=== PATIENT | male | born 1945 | race Caucasian/White ===

== ENCOUNTER 2017-02-22 05:59 | Emergency (ER) | payer BC, MEDICARE ==
[2017-02-22 06:14] VITALS: O2SAT 96
[2017-02-22] MEDS ORDERED: Albuterol-Ipratrop 3 mg / 0.5 (3 ml) UD INH STA (07:16)
--- NOTE | 2017-02-22 07:40 | C.PDOC ---
History Of Present Illness 71-year-old male with PMHx of Pulmonary Fibrosis (as per prior records), presents to the emergency department with complaints of shortness of breath, wheezing, productive cough with white sputum and chills for the past three days. He denies nausea/vomiting, abdominal pain, back pain, chest pain, fever. PMD Dr Bañuelos [employer] Professor Dr Santana Time Seen by Provider: 02/22/17 07:11 Chief Complaint (Nursing): Shortness Of Breath History Per: Patient History/Exam Limitations: no limitations Onset/Duration Of Symptoms: Days (3) Current Symptoms Are (Timing): Still Present Severity: Mild Past Medical History Reviewed: Historical Data, Nursing Documentation, Vital Signs Vital Signs: Last Vital Signs Temp 98.2 F 02/22/17 09:01 Pulse 90 02/22/17 09:01 Resp 20 02/22/17 09:01 BP 115/70 02/22/17 09:01 Pulse Ox 96 02/22/17 09:01 - Medical History PMH: Asthma Surgical History: Hernia Repair - [facility] Procedures INJECT/INFUSE NEC (02/18/13) NEBULIZER THERAPY (02/18/13) Family History: States: No Known Family Hx - Social History Hx Alcohol Use: No Hx Substance Use: No - Immunization History Hx Tetanus Toxoid Vaccination: Yes Hx Influenza Vaccination: Yes Hx Pneumococcal Vaccination: Yes Review Of Systems Except As Marked, All Systems Reviewed And Found Negative. Constitutional: Positive for: Chills. Negative for: Fever Cardiovascular: Negative for: Chest Pain, Palpitations Respiratory: Positive for: Cough, Shortness of Breath, Sputum Gastrointestinal: Negative for: Nausea, Vomiting, Abdominal Pain, Diarrhea Musculoskeletal: Negative for: Back Pain Neurological: Negative for: Weakness, Numbness, Headache, Dizziness Physical Exam - Physical Exam Appears: Well, Non-toxic, No Acute Distress (Speaking in full sentences) Skin: Warm, Dry, No Rash Eye(s): bilateral: Normal Inspection Oral Mucosa: Moist Throat: Normal, No Erythema, No Exudate Neck: Normal ROM Chest: Symmetrical Cardiovascular: Rhythm Regular (mildly tachycardic), No Murmur Respiratory: Normal Breath Sounds, No Accessory Muscle Use, No Rales, No Rhonchi , Wheezing (mild, expiratory wheezing B/L) Extremity: Normal ROM, No Pedal Edema, No Calf Tenderness Neurological/Psych: Oriented x3 ED Course And Treatment O2 Sat by Pulse Oximetry: 96 (RA) Pulse Ox Interpretation: Normal - Radiology CXR: Interpreted by Me, Viewed By Me (no infiltrates/effusions, right upper lobe bullae) Progress Note: CXR ordered and reviewed. Patient given duoneb treatment, PO Prednisone and PO azithromycin. Reevaluation Time: 09:00 Reassessment Condition: Improved (Patient reassessed, is resting comfortably and states he is feeling much better. On exam, he has good air entry B/L without wheezing or accessory muscle use. POx is WNL, and patient is comfortable being discharged home. Rxs for prednisone, azithromycin and albuterol inhaler. He was instructed to follow up with his binding end stitcher tomorrow as scheduled. He understands he should return to ED if symptoms worsen.) Disposition Counseled Patient/Family Regarding: Studies Performed, Diagnosis, Need For Followup, Rx Given - Disposition Referrals: Dilshad Bañuelos MD [Medical Doctor] - Bimal Santana MD [Staff Provider] - Disposition: HOME/ ROUTINE Disposition Time: 08:50 Condition: STABLE Additional Instructions: FOLLOW UP WITH DR SANTANA TOMORROW SCHEDULED USE MEDICATIONS DIRECTED RETURN TO EMERGENCY ROOM IF SYMPTOMS WORSEN SEGUIMIENTO CON DR SANTANA TOMORROW SARA EST PROGRAMADO USE MEDICACIONES SEGN SEA DIRIGIDO REGRESAR A LA BO DE EMERGENCIA SI LOS SNTOMAS FUNCIONAN Prescriptions: Albuterol HFA [Ventolin HFA 90 mcg/actuation (8 g)] 0.09 mg IH Q4 PRN #1 puff PRN Reason: Wheezing Azithromycin [Zithromax] 250 mg PO DAILY #4 tab predniSONE [predniSONE Tab] 40 mg PO DAILY #8 tab Instructions: Pulmonary Fibrosis (ED) Forms: [employer] (Arabic) Print Language: GEORGIAN - POA Present On Arrival: None - Clinical Impression Clinical Impression: Pulmonary fibrosis, Bronchitis - Scribe Statement The provider has reviewed the documentation as recorded by the Scribe (Linda Gifford) Provider Attestation: All medical record entries made by the Scribe were at my direction and personally dictated by me. I have reviewed the chart and agree that the record accurately reflects my personal performance of the history, physical exam, medical decision making, and the department course for this patient. I have also personally directed, reviewed, and agree with the discharge instructions and disposition.
[2017-02-22 09:05] VITALS: BP 115/70; PULSE 90; RESP 20; TEMP 98.2
--- NOTE | 2017-02-22 09:28 | RAD ---
HISTORY: sob, cough COMPARISON: Comparison is made to the previous CT of the chest dated 07/11/2016 TECHNIQUE: Chest PA and lateral FINDINGS: LUNGS: Moderate emphysematous changes more prominent at the upper lobes and left more than right lungs are again seen. Again seen are reticular opacities in the upper lobes larger and more prominent on the left PLEURA: No significant pleural effusion identified. No pneumothorax apparent. CARDIOVASCULAR: Normal. OSSEOUS STRUCTURES: No significant abnormalities. VISUALIZED UPPER ABDOMEN: Normal. OTHER FINDINGS: None. IMPRESSION: Moderate to severe emphysema. No definite radiographic evidence of acute pulmonary disease.
== END 2017-02-22 09:02 | disposition home or self-care (01) ==
LOC: C.ER 05:59
DX: J84.10 Pulmonary fibrosis, unspecified (principal); J40 Bronchitis, not specified as acute or chronic